=== PATIENT | female | born 1960 | race Caucasian/White ===

== ENCOUNTER → 2018-11-01 | Outpatient (CLI) | payer MEDICARE ==
[2015-12-06 03:30] VITALS: BP 115/61
[~2018-11-01] MED LIST: MECL25TA3 PO; ONDA4TAB7 PO
--- NOTE | 2018-11-01 11:46 | KCIC ---
MRI Lumbar Spine without contrast History: Low back pain, history of colon cancer, lower abdominal pain at times Technique: Multiplanar, multi sequential noncontrast MR imaging was performed of the lumbar spine. Comparison: None Findings: Lumbar vertebral body stature is overall maintained. Conus terminates near L1. There is hemangioma of S1. There is degenerative endplate change at L1-2, L4-5, and L5-S1 and to a lesser degree L3-4. There is very minimal grade 1 anterior spondylolisthesis at L3-4 and L5-S1. There is moderate to severe degenerative disc disease at L4-5 and L5-S1 and to lesser degree at L3-4 and L1-2. As suggested on the localizer, there is T2 hyperintense lesion of the right pelvic region about 3.2 cm. L1-L2: There is very shallow broad protrusion about 1 to 2 mm AP without neural impingement. Spinal canal and neural foramina are adequate. L2-L3: There is mild buckling of the ligamentum flavum and moderate facet hypertrophic change. Spinal canal and neural foramina are adequate. L3-L4: There is moderate to severe facet degenerative change and moderate buckling of the ligament flavum. There is prominence of posterior epidural fat centrally. Neural foramina are adequate. There is mild flattening of the thecal sac without significant spinal stenosis. L4-L5: There is [id number] right and mild left facet degenerative change. There is minimal buckling of the ligamentum flavum. There is negligible disc osteophyte complex. There is minimal narrowing of the far left lateral recess. Left neural foramen is adequate. There is moderate narrowing of the right neural foramen primarily from posteriorly by facet. L5-S1: There is mild to moderate right and mild left facet hypertrophic change. Spinal canal and neural foramina are adequate. Impression: 1. There is no significant lumbar spinal stenosis, mild narrowing of the far left lateral recess at L4-5 and mild flattening of the thecal sac at L3-4. There is moderate to severe degenerative disc disease at L4-5 and L5-S1, to a lesser degree at L3-4 and L1-2. 2. There is moderate narrowing of the right L4-5 neural foramen by facet, multilevel facet degenerative change. There is very minimal grade 1 anterior spondylolisthesis at L3-4 and L5-S1. 3. As seen on the localizer only, there is T2 hyperintense lesion of the right pelvis which may be adnexal cyst although otherwise cannot be accurately evaluated, would be better characterized with ultrasound. Electronically signed by: Torrey Oneill MD (11/01/2018 11:43 AM) [email or web address]
== END | disposition home or self-care (01) ==
LOC: KCIC MRI 09:52
DX: M43.17 Spondylolisthesis, lumbosacral region (principal); M51.37 Other intervertebral disc degeneration, lumbosacral region; M48.061 Spinal stenosis, lumbar region without neurogenic claudication; M25.78 Osteophyte, vertebrae; M51.26 Other intervertebral disc displacement, lumbar region; M47.816 Spondylosis without myelopathy or radiculopathy, lumbar region; Z85.038 Personal history of other malignant neoplasm of large intestine
CPT/HCPCS: 72148